=== PATIENT | male | born 1970 | race Caucasian/White ===

== ENCOUNTER 2017-05-14 07:44 | Emergency (ER) | payer BC, OTHER ==
[2017-05-14] MEDS: HYDROCODONE/APAP (5/325) TAB PO (08:31)
[2017-05-14] MEDS: KETOROLAC 60 MG INJ IM (08:32)
== END 2017-05-14 09:44 | disposition home or self-care (01) ==
LOC: FTE 07:44
DX: M54.41 Lumbago with sciatica, right side (principal)
CPT/HCPCS: 72100; 96372; 99284-25